=== PATIENT | female | born 1990 ===

== ENCOUNTER 2022-09-14 22:02 | Emergency (ER) | payer OTHER, MEDICAID, SELFPAY ==
[2022-09-14 22:05] VITALS: BP 135/85; PULSE 79; RESP 18; TEMP 36.3; O2SAT 98; BMI 23.0
--- NOTE | 2022-09-14 22:28 | ED_ITS ---
HPI - General Adult General Chief complaint: General Medical Stated complaint: Swollen mouth Time Seen by Provider: 09/14/22 22:26 Source: patient Mode of arrival: ambulatory Limitations: no limitations History of Present Illness HPI narrative: Patient noticed small pimple in the right nostril base were 2 days ago patient tried to squeeze and today noticed swelling of the upper lip no fever no chills patient also feels paini in her upper teeth no dental cavities Related Data Previous Rx's Medication Instructions Recorded cephalexin 500 mg capsule 500 mg PO QID 10 days #40 caps 09/14/22 doxycycline hyclate 100 mg tablet 100 mg PO BID #20 tabs 09/14/22 Allergies Allergy/AdvReac Type Severity Reaction Status Date / Time No Known Allergies Allergy Unverified 07/08/20 16:07 [No Known Allergies*] Review of Systems Review of Systems: Yes all other systems are reviewed and are negative [facility] Social History Social History Smoked in Last 30 Days: Yes Use of substances other than those prescribed or required for medical reasons: No Advance Directives: No Advance Directives Information Provided: No Patient : No Physical Exam ED Vital Signs: Vital Signs - 24 hr 09/14/22 22:05 Temperature 97.3 F Pulse Rate 79 Respiratory Rate 18 Blood Pressure 135/85 Pulse Oximetry 98 Oxygen Delivery Method Room Air BMI result Body Mass Index 23.0 Appearance: Alert. Oriented X3. No acute distress. ENT: Pharynx normal. Oral Mucosa moist, no dental caries, no gum swelling Neck: Normal inspection. Neck supple. CVS: Normal heart rate and rhythm. Pulses normal. Respiratory: No respiratory distress. Equal air entry bilateral, Abdomen: Soft and nontender. Bowel sounds are present, Skin: Skin warm and dry.swelling of upper lip, small follicuitis at base of r nostril, no abscess felt Medications Administered Discontinued Medications Generic Name Dose Route Start Last Admin Trade Name Freq PRN Reason Stop Dose Admin Cephalexin HCl 500 mg 09/14/22 22:42 09/14/22 22:52 Cephalexin 500 Mg Capsule PO 09/14/22 22:43 500 mg ONCE ONE Administration Doxycycline Monohydrate 100 mg 09/14/22 22:42 09/14/22 22:52 Doxycycline Monohydrate 100 Mg Capsule PO 09/14/22 22:43 100 mg ONCE ONE Administration Medical Decision Making MDM Narrative Medical decision making narrative: Patient with right nostril folliculitis with cellulitis of the upper lip will discharge patient home on doxycycline and Keflex for staph coverage Discharge Plan Discharge Clinical Impression: Folliculitis of nose Patient Disposition: Home, Self-Care Instructions: Folliculitis (ED) Additional Instructions: Warm compresses as advised Take antibiotic as prescribed Prescriptions: New cephalexin 500 mg capsule 500 mg PO QID 10 Days Qty: 40 0RF doxycycline hyclate 100 mg tablet 100 mg PO BID Qty: 20 0RF
[2022-09-14] MEDS: Doxycycline Monohydrate 100 MG CAPSULE PO (22:52)
[2022-09-14] MEDS: cephALEXin 500 MG CAPSULE PO (22:52)
== END 2022-09-14 22:59 | disposition home or self-care (01) ==
PROVIDERS: Emergency Provider Internal Medicine
DX: L73.9 Follicular disorder, unspecified (principal)
CPT/HCPCS: 99283; 99284

== ENCOUNTER 2023-11-21 08:52 | Emergency (ER) | payer MEDICAID, SELFPAY ==
[2023-11-21 09:03] VITALS: BP 122/79; PULSE 80; RESP 16; TEMP 36.8; O2SAT 99; BMI 23.0
--- NOTE | 2023-11-21 09:38 | ED_ITS ---
HPI - Skin/Abscess/Foreign Bdy General Chief complaint: Skin/Abscess/Foreign Body Stated complaint: ? Cyst Lip Nose Area Time Seen by Provider: 11/21/23 09:19 Source: patient Mode of arrival: ambulatory Limitations: no limitations History of Present Illness HPI narrative: 33-year-old female presents with complaints of swelling to the right upper lip and pimple in the right nose patient reports this started yesterday, she reports she noticed it yesterday applied warm and cold compresses to affected area and woke up this morning with a more pronounced swollen upper lip. Patient reports that she thinks this started from a pimple in her nose. Denies recent dental work. Denies fevers, chills, difficulty swallowing, changes in voice, nausea, vomiting, abdominal pain, headache, vision changes, dizziness, weakness. Related Data Previous Rx's Medication Instructions Recorded cephalexin 500 mg capsule 500 mg PO QID 10 days #40 caps 09/14/22 doxycycline hyclate 100 mg tablet 100 mg PO BID #20 tabs 09/14/22 cephalexin 500 mg tablet 500 mg PO Q6H 10 days #40 tabs 11/21/23 doxycycline hyclate 100 mg capsule 100 mg PO BID 10 days #20 caps 11/21/23 prednisone 50 mg tablet 50 mg PO DAILY 5 days #5 tabs 11/21/23 Allergies Allergy/AdvReac Type Severity Reaction Status Date / Time No Known Allergies Allergy Unverified 07/08/20 16:07 [No Known Allergies*] Review of Systems Review of Systems: Yes all other systems are reviewed and are negative PMFSH Past Medical History Attestation statement: The following information was validated with the patient. Source: old records reviewed and nursing notes reviewed Social History Social History Advance Directives: No Advance Directives Information Provided: No Physical Exam Vital Signs: Vital Signs: Last Vital Signs Temp 98.3 F 11/21/23 09:03 Pulse 80 11/21/23 09:03 Resp 16 11/21/23 09:03 BP 122/79 11/21/23 09:03 Pulse Ox 99 11/21/23 09:03 O2 Del Method Room Air 11/21/23 09:03 BMI result Body Mass Index 23.0 vss Appearance: Alert.? Oriented X3.? No acute distress.? Head: Normocephalic, atraumatic, no step-offs or deformities Eyes: Pupils equal, round and reactive to light.? ENT: Pharynx normal.?+ folliculitis vs small pimple to base of R nostril w/o a bscess and noted swelling to upper lip. Uvula midline. No appreciated RPA or PHYSICAL THERAPY COORDINATOR. Speaking in full sentences controlling secretions well. ? indurated area to r. upper lip w/o fluctuance. Neck: Normal inspection.? Neck supple.? CVS: Normal heart rate and rhythm.? Pulses normal.? Respiratory: No respiratory distress.? Breath sounds normal.? Abdomen: Soft and nontender.? Skin: Skin warm and dry.? Normal skin color.? Normal skin turgor.? Extremities: No lower extremity edema.? No calf ttp. 5/5 strength to bilateral upper and lower extremities Back: No midline tenderness, no C-spine tenderness, full range of motion, no CVA tenderness bilaterally Neuro: Oriented X 3.? No motor deficit.? No sensory deficit. CN 2-12 intact Medical Decision Making Medical Decision Making MDM Narrative: 33-year-old female presents with swelling to the upper lip and a small pimple in her nose worsening since yesterday Upon chart review it appears as though patient was seen here 09/14/2022 for similar complaint. She tells me this was a very similar to that presentation. On exam folliculitis vs small pimple to base of R nostril w/o abscess and noted swelling to upper lip. Uvula midline. No appreciated RPA or PHYSICAL THERAPY COORDINATOR. Speaking in full sentences controlling secretions well. ? indurated area to r. upper lip w/o fluctuance. Concerns possible developing abscess to the base of the right nostril with subsequent cellulitis and swelling of the upper lip. No appreciated abscess at this time. Other differentials include folliculitis. No signs of dental abscess, threat to airway. Unlikely angioedema, anaphylaxis or allergic reaction based off history and physical exam. Plan at this time will discharge with doxycycline and Keflex. Advised on warm compresses. Educated patient on diagnosis and treatment plan, answered all question, patient verbalizes understanding. At this time patient will be di scharged home, advised to return with new or worsening symptoms. Educated on worrisome signs and symptoms and when to return. At this time I feel comfortable discharge home. Differential Diagnosis Differential Diagnoses: The differential diagnosis associated with the presentation includes Concerns possible developing abscess to the base of the right nostril with subsequent cellulitis and swelling of the upper lip. No appreciated abscess at this time. Other differentials include folliculitis. No signs of dental absces s, threat to airway. Unlikely angioedema, anaphylaxis or allergic reaction based off history and physical exam. Admission/Observation Consideration of admission/observation: Escalation of care including admission/observation considered unlikely Lab Data Labs: No indication External Record Review External record reviewed: Outpatient record (prior ed visit ) Prescription Management I considered prescription management with: Antibiotic Discharge Plan Discharge Clinical Impression: Abscess of skin or subcutaneous tissue, Lip swelling Patient Disposition: Home, Self-Care Additional Instructions: Take your medications as prescribed. If you were prescribed antibiotics today, it is important that you take your medication to their entirety, do not skip any doses, do not finish them early. Follow-up with your primary care provider this week. Return to the emergency department with new or worsening symptoms. Such as fevers, chills, chest pain, shortness of breath, nausea, vomiting, dizziness, headache, vision changes, lethargy In case of emergency call 911 Apply warm compresses to the affected area 3 to 4 times a day. Prescriptions: New doxycycline hyclate 100 mg capsule 100 mg PO BID 10 Days Qty: 20 0RF cephalexin 500 mg tablet 500 mg PO Q6H 10 Days Qty: 40 0RF prednisone 50 mg tablet 50 mg PO DAILY 5 Days Qty: 5 0RF No Action cephalexin 500 mg capsule 500 mg PO QID 10 Days Qty: 40 0RF doxycycline hyclate 100 mg tablet 100 mg PO BID Qty: 20 0RF Referrals: Physician,Unknown J [Primary Care Provider] - 2 days Stand Alone Forms: Work/School Release
== END 2023-11-21 09:46 | disposition home or self-care (01) ==
PROVIDERS: Emergency Provider Emergency Medicine Emergency Medical Services
DX: K13.0 Diseases of lips (principal); J34.0 Abscess, furuncle and carbuncle of nose
CPT/HCPCS: 99282; 99283

== ENCOUNTER 2025-02-02 08:40 | Emergency (ER) | payer MEDICAID, SELFPAY ==
[2025-02-02 08:49] VITALS: BP 126/70; PULSE 84; RESP 16; TEMP 37.1; O2SAT 99; BMI 25.9
--- NOTE | 2025-02-02 10:09 | ED.SKABFB ---
HPI - Skin/Abscess/Foreign Bdy General Chief complaint: Skin/Abscess/Foreign Body Stated complaint: ?Abscess or Boil Nasal Cavity Time Seen by Provider: 02/02/25 09:50 Source: patient Mode of arrival: ambulatory Limitations: no limitations History of Present Illness ED Provider: PRAMOD HUBBARD narrative: 34 yo female with PMH of facial abscess/cellulitis who reports 2 days of upper lip swelling/pain and abscess noted. No fevers, no severe headaches. Tried to use warm compresses. She denies fevers, no HTN medications. MD complaint: abscess/boil Onset (ago): day(s) (2) Tetanus up to date: yes Location: face Severity: moderate Quality: aching Pain Consistency: intermittent Relieving factors: immobilization Exacerbating factors: palpation Context: other Associated symptoms: denies other symptoms Treatments prior to arrival: other (warm compress) Related Data Previous Rx's ?Medication ?Instructions ?Recorded cephalexin 500 mg capsule 500 mg PO QID 10 days #40 caps 09/14/22 doxycycline hyclate 100 mg tablet 100 mg PO BID #20 tabs 09/14/22 cephalexin 500 mg tablet 500 mg PO Q6H 10 days #40 tabs 11/21/23 doxycycline hyclate 100 mg capsule 100 mg PO BID 10 days #20 caps 11/21/23 prednisone 50 mg tablet 50 mg PO DAILY 5 days #5 tabs 11/21/23 amoxicillin 875 mg-potassium 1 tab PO BID #14 tabs 02/02/25 clavulanate 125 mg tablet doxycycline hyclate 100 mg capsule 100 mg PO BID 7 days #14 caps 02/02/25 hydrocodone 5 mg-acetaminophen 325 1 tab PO Q6H PRN pain #10 tabs 02/02/25 mg tablet ondansetron 4 mg disintegrating 4 mg PO Q8H PRN nausea and 02/02/25 tablet vomiting #20 tabs Allergies Allergy/AdvReac Type Severity Reaction Status Date / Time No Known Allergies Allergy Verified 02/02/25 08:51 [No Known Allergies*] Review of Systems Review of Systems: Constitutional : No Fever, No Chills ENT/Mouth : No sore throat, No Rhinorrhea Eyes: No Eye Pain, No Swelling, No Redness Cardiovascular : No Chest Pain, No SOB Respiratory : No Cough, No Sputum Gastrointestinal : No Nausea, No Vomiting, No Diarrhea, No abdominal Pain Genitourinary : No Dysuria, No Hematuria Musculoskeletal : No joint pain, No Myalgias, No Joint Swelling Skin : pos skin Lesion, no skin rash Neuro : No Weakness, No Numbness, No Headache Psych : No Anxiety, No Depression Heme/Lymph: No Bruising, No Bleeding,No Lymphadenopathy Endocrine : No Polyuria, No Polydipsia All other systems reviewed and are negative PMFSH Past Medical History Attestation statement: The following information was validated with the patient. Source: old records reviewed Medical History (Updated 02/02/25 @ 10:35 by Aniyah Bahena DO) Abscess Social History Social History Smoked in Last 30 Days: No Use of substances other than those prescribed or required for medical reasons: Yes Substance Use Type: Marijuana Substance Use Frequency: Occasionally Advance Directives: No Advance Directives Information Provided: Yes Patient : No Physical Exam Vital Signs: Vital Signs: Last Vital Signs Temp 98.8 F 02/02/25 08:49 Pulse 84 02/02/25 08:49 Resp 16 02/02/25 08:49 BP 126/70 02/02/25 08:49 Pulse Ox 99 02/02/25 08:49 O2 Del Method Room Air 02/02/25 08:49 BMI result Body Mass Index 25.9 Appearance: Alert. Oriented X3. No acute distress. Eyes: Pupils equal, round and reactive to light. ENT: Pharynx upper lip mild swelling no redness no fluctuance under the upper lip along the R front incisor is boggy fluctuant area concerning for abscess she has no extension to inside the mouth, normal nose and facial exam other than mild swelling upper lip Neck: Normal inspection. Neck supple. CVS: Normal heart rate and rhythm. Pulses normal. Respiratory: No respiratory distress. Breath sounds normal. Abdomen: Soft and nontender. Skin: Skin warm and dry. Normal skin color. Normal skin turgor. Extremities: No lower extremity edema. No calf ttp Neuro: Oriented X 3. No motor deficit. No sensory deficit. CN2-12 intact Medical Decision Making Medical Decision Making MDM Narrative: 34 yo female with hx of abscess of the tooth in the past resulting in what she describes facial cellulitis she comes in today with c/o upper lip abscess - at this time will I+D and place on antibiotics. No signs of extension onto the face. Differential Diagnosis Differential Diagnoses: The differential diagnosis associated with the presentation includes abscess, cellulitis Admission/Observation Consideration of admission/observation: Escalation of care including admission/observation considered can be managed as outpatient with oral abx Prescription Management I considered prescription management with: Pain Medication and Antibiotic Procedures Abscess I/D Site: lip Local Anesthetic: other anesthetic (lollicaine) Amount of anesthesia used (mL): 3 Technique: needle aspiration Sent for culture/gram staining?: No Irrigation: No Packing used?: none Discharge Plan Discharge Clinical Impression: Abscess of skin or subcutaneous tissue Qualifiers: Site of cutaneous abscess: mouth Qualified Code(s): K12.2 - Cellulitis and abscess of mouth Patient Disposition: Home, Self-Care Instructions: Abscess (ED), Incision and Drainage (ED) Additional Instructions: avoid spicy and citrus foods it will continue to ooze a little bit use the gauze and keep it in place for 5 hours if you notice this be very careful brushing return for any worsening symptoms or concerns. Prescriptions: New doxycycline hyclate 100 mg capsule 100 mg PO BID 7 Days Qty: 14 0RF hydrocodone-acetaminophen 5-325 mg tablet 1 tab PO Q6H PRN (Reason: pain) Qty: 10 0RF Rx Instructions: partial fill okay; Partial Fill upon patient request. ondansetron 4 mg tablet,disintegrating 4 mg PO Q8H PRN (Reason: nausea and vomiting) Qty: 20 0RF amoxicillin-pot clavulanate 875-125 mg tablet 1 tab PO BID Qty: 14 0RF No Action cephalexin 500 mg capsule 500 mg PO QID 10 Days Qty: 40 0RF doxycycline hyclate 100 mg tablet 100 mg PO BID Qty: 20 0RF doxycycline hyclate 100 mg capsule 100 mg PO BID 10 Days Qty: 20 0RF cephalexin 500 mg tablet 500 mg PO Q6H 10 Days Qty: 40 0RF prednisone 50 mg tablet 50 mg PO DAILY 5 Days Qty: 5 0RF Stand Alone Forms: Work/School Release Print Language: [place] Citizen
[2025-02-02 10:51] VITALS: BP 128/68; PULSE 76; RESP 16; TEMP 36.8; O2SAT 99
--- OUTSIDE RECORDS SUMMARY | 2025-02-02 11:17 | XMS_ITS | Clinical Summary ---
Author Organization [facility] Address [address] [place] [address] Care Team Providers Care Sales Merchandise Associate Name Role Phone Unavailable Primary Care Provider Unavailabl e Encounters Date Type Department Care Team Description 01/21/2025 Population Health Risk Score [facility]ly [facility] Care [facility] ([facility]) Department [address] [place] [id number] Provider, Population Health Generic from Last 3 Months Social History Tobacco Use Types Packs/Day Years Used Date Smoking Tobacco: Never Assessed Comments Unknown Sex and Gender Information Value Date Recorded Sex Assigned at Not on file Legal Sex Female 11:48 AM EDT Gender Identity Not on file Sexual Orientation Not on file Plan of Treatment Health Maintenance Due Date Last Done Comments Depression Screening 1989 HIV Screening 1989 SDOH Screening 1989 Alcohol/Substance Use Screening 2001 Tobacco Screening 2001 Family Planning (PISQ) 2004 Hepatitis C Screening 2007 DTaP/Tdap/Td Vaccines (1 - Tdap) 2008 Hepatitis B Vaccines (1 of 3 - 19+ 3-dose series) 2008 Pap Smear 2010 Cervical Cancer Screening 2019 HPV/Cotest 2019 COVID-19 Vaccine (1 - 2023-2 5 season) 2024 Influenza Vaccine (#1) 2024 Zoster Vaccines (1 of 2) 2039 RSV Patients and Pa tients Aged 60 years or older (1 - 1-dose 75+ series) 2064 HIB Vaccines Aged Out No longer eligi ble based on patient's age to complete this topic HPV Vaccines Aged Out No longer eligi ble based on patient's age to complete this topic Hepatitis A Vaccines Aged Out No long er eligible based on patient's age to complete this topic IPV Vaccines Aged Out No longer eligi ble based on patient's age to complete this topic Meningococcal Vaccine Aged Out No bert tianna eligible based on patient's age to complete this topic Pneumococcal Vaccine: Pediat rics (0 to 5 Years) and At-Risk Patients (6 to 49) Years) Aged Out No longer eligible b ased on patient's age to complete this topic RSV under 20 months Aged Out No longe r eligible based on patient's age to complete this topic Rotavirus Vaccines Aged Out No longer eligible based on patient's age to complete this topic
== END 2025-02-02 10:51 | disposition home or self-care (01) ==
PROVIDERS: Emergency Provider Emergency Medicine
DX: K12.2 Cellulitis and abscess of mouth (principal)
CPT/HCPCS: 10060; 99283; 99284